=== PATIENT | female | born 1990 | race Hispanic/Latino ===

== ENCOUNTER 2024-02-19 19:49 | Inpatient (IN) | payer BC ==
[2024-02-19 20:21] VITALS: BMI 26.7
[2024-02-19] MEDS ORDERED: Ondansetron PF 4 MG/2 ML Vial IVP PRN (22:48)
[2024-02-19] MEDS ORDERED: hydrALAZINE 20 MG/ML VIAL SLOW IVP PRN ×2 (22:48)
[2024-02-19] MEDS: Penicillin G Potassium 5 MILL.UNITS VIAL ONE (22:48)
[2024-02-19] MEDS ORDERED: Promethazine HCl 25 MG/ML VIAL IM PRN (22:48)
[2024-02-19] MEDS ORDERED: Carboprost 250 MCG/ML AMP IM PRN (22:49)
[2024-02-19] MEDS ORDERED: Diphenoxylate HCl/Atropine Tablet PO PRN (22:49)
[2024-02-19] MEDS ORDERED: Misoprostol 200 MCG TAB PR PRN (22:49)
[2024-02-19] MEDS ORDERED: Methylergonovine 0.2 MG/ML VIAL IM PRN (22:49)
[2024-02-19] MEDS ORDERED: Lidocaine 1% (PF) 30 ML VIAL SC PRN (22:57)
[2024-02-19] MEDS ORDERED: Penicillin G Potassium 5 MILL.UNITS in Sodium Chloride 0.9% 100 ML IVPB SCH (23:00)
[2024-02-19] MEDS ORDERED: Oxytocin 30 units/NS 500 ML 500 ML IV SCH (23:00)
[2024-02-19 23:19] LABS: Hematocrit 35.2 % (34.9-44.5); Hemoglobin 12.8 g/dL (12.0-15.5); Mean Corpuscular HGB CONC 36.4 g/dL (32.0-36.0); Mean Corpuscular Hemoglobin 31.8 pg (27.0-33.0); Mean Corpuscular Volume 87.3 fL (81.6-98.3); Mean Platelet Volume 11.8 fL (7.4-10.4); Platelet Count 304 10x3/uL (150-450); RBC Distribution Width 13.7 % (11.5-14.5); Red Blood Cell (RBC) Count 4.03 10x6/uL (3.90-5.03); White Blood Cell (WBC) Count 9.7 10x3/uL (3.5-10.5)
[2024-02-19 23:43] LABS: HBsAg Index 0.16 S/CO (0-0.99); Hep B Surf Ag - L&D Non-Reactive S/CO (NonReactive)
[2024-02-19 23:45] LABS: Syphilis Antibody Nonreactive (Nonreactive); Syphilis Antibody Index 0.03 S/CO (<1.00 Non-Reactive)
[2024-02-20] MEDS ORDERED: Famotidine/PF 20 mg/2ml Vial SLOW IVP PRN ×2 (02:48→03:00)
[2024-02-20] MEDS ORDERED: Bicitra 30 ML UDCUP PO PRN (02:48)
[2024-02-20] MEDS ORDERED: Penicillin G 2.5 MILL.units 2.5 MILL.UNITS in Premix 1 BAG IVPB SCH (03:00)
[2024-02-20] MEDS ORDERED: CEFAZOLIN 2 GM in Sodium Chloride 0.9% 100 ML IVPB SCH (03:00)
[2024-02-20] MEDS ORDERED: Azithromycin 500 MG in Sodium Chloride 0.9% 250 ML 250 ML IVPB SCH (03:00)
[2024-02-20] MEDS ORDERED: HYDROcodone/Acetaminophen 5/325 mg Tablet PO PRN ×3 (03:54→16:30)
[2024-02-20] MEDS ORDERED: Misoprostol 200 MCG TAB PR PRN (03:54)
[2024-02-20] MEDS ORDERED: Ondansetron PF 4 MG/2 ML Vial IVP PRN ×3 (03:54→04:17)
[2024-02-20] MEDS ORDERED: Boostrix 0.5 ML (Tdap) VIAL (>/=7 yrs of age) IM ONE (03:54)
[2024-02-20] MEDS ORDERED: hydrALAZINE 20 MG/ML VIAL SLOW IVP PRN (03:54)
[2024-02-20] MEDS ORDERED: Promethazine HCl 25 MG/ML VIAL IM PRN ×2 (03:54→04:17)
[2024-02-20] MEDS ORDERED: Methylergonovine 0.2 MG/ML VIAL IM PRN (03:54)
[2024-02-20] MEDS ORDERED: Lanolin Ointment 7 GM TUBE TOP PRN (03:54)
[2024-02-20] MEDS ORDERED: Simethicone Chewable 80 MG TAB PO PRN (03:54)
[2024-02-20] MEDS ORDERED: Oxytocin 30 units/NS 500 ML 500 ML IV SCH (04:00)
[2024-02-20] MEDS ORDERED: Moisturizing Cream (Eucerin) 113 GM JAR TOP PRN (04:17)
[2024-02-20] MEDS ORDERED: Naloxone HCl 0.4 mg/ml Vial IVP PRN ×2 (04:17)
[2024-02-20] MEDS ORDERED: Naloxone HCl 0.4 mg/ml Vial IV PRN (04:17)
[2024-02-20] MEDS ORDERED: Meperidine HCl/PF 25 MG (1 mL) VIAL SLOW IVP PRN (04:17)
[2024-02-20] MEDS ORDERED: diphenhydrAMINE 50 MG/ML VIAL IVP PRN (04:17)
[2024-02-20] MEDS ORDERED: fentaNYL 50 mcg/mL 1 mL Vial SLOW IVP PRN (04:17)
[2024-02-20] MEDS ORDERED: Communication Order-Pharmacy FS SCH (04:30)
[2024-02-20] MEDS ORDERED: Ibuprofen 800 MG TAB PO SCH (06:00)
[2024-02-20] MEDS: Terbutaline Sulfate 1 MG/ML VIAL ONE (07:00)
[2024-02-20] MEDS: Azithromycin 500 MG VIAL ONE (07:00)
[2024-02-20] MEDS: Lactated Ringer's 1,000 ML IV SCH ×2 (07:00→07:24)
[2024-02-20] MEDS: Tranexamic Acid 1,000 MG/10 ML VIAL ONE (07:00)
[2024-02-20] MEDS: Sterile Water 10 ML ONE (07:01)
[2024-02-20] MEDS: Morphine PF 10 MG/10 ML VIAL ONE (07:01)
[2024-02-20] MEDS: Dexmedetomidine 200 MCG/2 ML VIAL ONE (07:01)
[2024-02-20] MEDS: CEFAZOLIN 2 GM VIAL ONE (07:01)
[2024-02-20] MEDS: Phenylephrine 40 MG/NS 250 ML 250 ML ONE (07:01)
[2024-02-20] MEDS: Oxytocin 10 UNITS/ML VIAL ONE ×2 (07:01→07:24)
[2024-02-20] MEDS: Ondansetron PF 4 MG/2 ML Vial ONE (07:02)
[2024-02-20] MEDS: Dexamethasone 10 MG/ML VIAL ONE (07:02)
[2024-02-20] MEDS: Ketorolac Tromethamine 30 MG (1 mL) VIAL ONE (07:24)
[2024-02-20] MEDS: Measles/Mumps/Rubella 10 MCG/0.5 ML VIAL SC ONE (07:25)
[2024-02-20] MEDS: Varicella virus, LIVE 0.5 ML VIAL SC ONE (07:25)
[2024-02-20] MEDS: Prenatal Vitamin 1 TAB PO SCH (10:29)
[2024-02-20] MEDS: Ferrous Sulfate 325 MG TAB PO SCH (10:29)
[2024-02-20] MEDS: Docusate 100 MG CAP PO SCH (10:29)
[2024-02-20] MEDS: Ketorolac Tromethamine 30 MG (1 mL) VIAL IVP SCH (10:30)
[2024-02-21] MEDS: Ibuprofen 800 MG TAB PO SCH ×2 (04:58→11:37)
[2024-02-21 06:21] LABS: Hematocrit 28.8 % (34.9-44.5); Hemoglobin 10.3 g/dL (12.0-15.5); Mean Corpuscular HGB CONC 35.8 g/dL (32.0-36.0); Mean Corpuscular Hemoglobin 31.7 pg (27.0-33.0); Mean Corpuscular Volume 88.6 fL (81.6-98.3); Mean Platelet Volume 10.9 fL (7.4-10.4); Platelet Count 249 10x3/uL (150-450); Red Blood Cell (RBC) Count 3.25 10x6/uL (3.90-5.03); White Blood Cell (WBC) Count 14.1 10x3/uL (3.5-10.5)
[2024-02-21] MEDS: Acetaminophen 500 MG TAB PO PRN (08:32)
[2024-02-22] MEDS: Ibuprofen 800 MG TAB PO SCH (04:02)
[2024-02-22] MEDS: HYDROcodone/Acetaminophen 5/325 mg Tablet PO PRN (08:38)
[2024-02-22 11:35] LABS: Analyzer IN Cardio CS NICU; RapidComm Collect By cbn
[2024-02-22 11:37] LABS: Analyzer IN Cardio CS ICU; RapidComm Collect By cbn; pH (Cord, venous) 7.286 (7.250-7.350)
[2024-02-22 22:28] VITALS: TEMP 97.8
[2024-02-23 07:41] VITALS: BP 117/79
== END 2024-02-23 11:00 | disposition home or self-care (01) | DRG 788 ==
LOC: CSHLD/OP 19:49 → CSHLD 22:28 → CSHPP 02-20 06:15
PROVIDERS: ADMIT Obstetrics & Gynecology; ATTEND Obstetrics & Gynecology
PROC: 10D00Z1 Extraction of Products of Conception, Low, Open Approach (ICD-10-PCS; principal; 2024-02-20)
DX: O48.0 Post-term pregnancy (principal); O99.824 Streptococcus B carrier state complicating childbirth; Z3A.40 40 weeks gestation of pregnancy; Z37.0 Single live birth; O76 Abnormality in fetal heart rate and rhythm complicating labor and delivery; O64.0XX0 Obstructed labor due to incomplete rotation of fetal head, not applicable or unspecified
CPT/HCPCS: 36415; 51702; 82805; 85027; 85461; 86780; 86850; 86870; 86900; 86901; 87340; 88307; 90384; 96372; 99285; J1100; J1885; J2274; J2405; J2540; J2590; J7120